=== PATIENT | female | born 1990 | race Two or more races ===

== ENCOUNTER 2021-04-02 00:35 | Observation (INO) | payer MEDICAID, OTHER ==
[~2021-04-02] VITALS: Ht 154.9 cm; Wt 95.3 kg
== END 2021-04-02 02:22 | disposition home or self-care (01) ==
LOC: LDRP 00:35
PROVIDERS: ADMIT Specialist; ATTEND Specialist
DX: O26.899 Other specified pregnancy related conditions, unspecified trimester (principal); R10.9 Unspecified abdominal pain; Z3A.00 Weeks of gestation of pregnancy not specified
CPT/HCPCS: 59025; 81002; G0378